=== PATIENT | female | born 1995 | race Caucasian/White ===

== ENCOUNTER 2019-03-02 04:35 | Emergency (ER) | payer OTHER ==
--- NOTE | 2019-03-02 04:38 | ED Physician Documentation ---
PD HPI HEENT - Stated complaint Stated Complaint: THROAT SWELLING/ITCHY - History obtained from History obtained from: Patient - History of Present Illness Timing - onset: How many hours ago (07/26), Today Timing - duration: Hours (07/26) Timing - details: Abrupt onset (She had been having some low back pain after some bending lifting. For this she took some tramadol which was a prior pres cription for her. She took it at about 2:30 AM and at 3 AM she started having a feeling of general itching and a feeling of some tightness in the back of her throat. She had not been allergic to it previously. There is no other new medicines or foods.), Still present Location: Throat, Mouth Worsens: Swalllowing Associated symptoms: Facial swelling, Other (general itching). No: Fever, Congestion Similar symptoms before: Has not had sx before Review of Systems Constitutional: denies: Fever, Myalgias Nose: denies: Rhinorrhea / runny nose, Congestion Throat: denies: Sore throat Cardiac: denies: Chest pain / pressure Respiratory: denies: Dyspnea, Cough GI: denies: Abdominal Pain, Nausea, Vomiting, Diarrhea Skin: reports: Rash (itching and some red blotches) PD PAST MEDICAL HISTORY - Past Medical History Cardiovascular: None Respiratory: None Neuro: None Endocrine/Autoimmune: None - Present Medications Home Medications: Ambulatory Orders Medication Instructions Recorded Confirmed Cetirizine [ZyrTEC] 10 mg PO DAILY #15 tablet 03/02/19 Hydrocodone/Acetaminophen [[place] 1 each PO Q6H PRN #15 tablet 03/02/19 5-325 Tablet] Methocarbamol [Robaxin] 500 mg PO Q6H PRN #25 tablet 03/02/19 Naproxen 500 mg PO BID #20 tablet 03/02/19 dexAMETHasone [Decadron] 4 mg PO DAILY #5 tablet 03/02/19 - Allergies Allergies/Adverse Reactions: Allergies Allergy/AdvReac Type Severity Reaction Status Date / Time Penicillins Allergy Rash Verified 03/02/19 04:43 - Living Situation Living Situation: reports: With spouse/s.o. Living Arrangement: reports: At home - Family History Family history: reports: Non contributory PD ED PE NORMAL - Vitals Vital signs reviewed: Yes - General General: Alert and oriented X 3, No acute distress, Well developed/nourished - HEENT HEENT: Atraumatic, Pharynx benign (with just minimal edema of the uvula. Else normal. ) - Neck Neck: Supple, no meningeal sign, No adenopathy - Cardiac Cardiac: RRR, No murmur - Respiratory Respiratory: Clear bilaterally - Back Back: Other - Derm Derm: Normal color, Warm and dry, Other (She is scratching diffusely. There only a few scattered flattopped raised variable sized red spots consistent with hives.) - Neuro Neuro: Alert and oriented X 3, No motor deficit, No sensory deficit Results - Vitals Vitals: Vital Signs - 24 hr 03/02/19 04:35 Temperature 36.4 C L Heart Rate 84 Respiratory 16 Rate Blood Pressure 130/78 O2 Saturation 98 Oxygen O2 Source Room air PD MEDICAL DECISION MAKING - ED course Complexity details: considered differential (Given the proximity of time from the tramadol to the symptoms and no other obvious instigator, I would presume she is now allergic to the tramadol. She is using it for low back pain so we can substitute in other treatments for the back. Otherwise shared treatment between the 2 would be some steroids for several days as well.), d/w patient Departure - Departure Disposition: 01 Home, Self Care Clinical Impression: Allergic reaction to drug Qualifiers: Encounter type: initial encounter Qualified Code(s): T78.40XA - Allergy, unspecified, initial encounter Low back pain Qualifiers: Chronicity: acute Back pain laterality: left Sciatica presence: with sciatica Sciatica laterality: sciatica of left side Qualified Code(s): M54.42 - Lumbago with sciatica, left side Condition: Stable Record reviewed to determine appropriate education?: Yes Instructions: ED Drug React Allergic Prescriptions: Cetirizine [ZyrTEC] 10 mg PO DAILY #15 tablet dexAMETHasone [Decadron] 4 mg PO DAILY #5 tablet Hydrocodone/Acetaminophen [[place] 5-325 Tablet] 1 each PO Q6H PRN #15 tablet PRN Reason: Pain Methocarbamol [Robaxin] 500 mg PO Q6H PRN #25 tablet PRN Reason: Spasms Naproxen 500 mg PO BID #20 tablet Comments: Use the Decadron steroid for the next several days. This will help treat the allergic reaction. It actually can be helpful for your low back pain as well. Add cetirizine if the itch seems to continue over the next couple of days. Use Benadryl every 6 hours as needed for acute itchiness. For your low back, use gentle heating and stretching. Massage or chiropractic are good. Use naproxen anti-inflammatory twice daily and add Robaxin muscle relaxant if needed for stiffness and spasm. Add hydrocodone if needed for back pain Discharge Date/Time: 03/02/19 05:26
[2019-03-02 04:43] VITALS: BP 130/78
[2019-03-02] MEDS ORDERED: CETIRIZINE 10 MG TABLET PO STA (04:48)
[2019-03-02] MEDS ORDERED: CHERRY SYRUP 10 ML UDC PO ONE (04:48)
[2019-03-02] MEDS ORDERED: NAPROXEN 250 MG TABLET PO STA (04:48)
[2019-03-02] MEDS ORDERED: diphenhydrAMINE INJ 50 MG/ML VIAL IM STA (04:48)
[2019-03-02] MEDS ORDERED: DEXAMETHASONE 10 MG/ML VIAL PO STA (04:48)
== END 2019-03-02 05:26 | disposition home or self-care (01) ==
LOC: ED 04:35
DX: L50.9 Urticaria, unspecified (principal); R22.0 Localized swelling, mass and lump, head; T40.4X5A Adverse effect of other synthetic narcotics, initial encounter; M54.42 Lumbago with sciatica, left side
CPT/HCPCS: 96372; 99283; 99284; A9270; J1200

== ENCOUNTER 2019-08-13 08:53 | Outpatient (CLI) | payer OTHER ==
[~2019-08-13 08:53] MED LIST: ALBUTEROL NEB 2.5 MG/3 ML INH ONE
== END 2019-08-13 08:54 | disposition home or self-care (01) ==
LOC: RT 08:53
PROVIDERS: ATTEND Family Medicine
DX: J35.1 Hypertrophy of tonsils (principal)
CPT/HCPCS: 94010

== ENCOUNTER 2019-09-08 14:58 | Emergency (ER) | payer OTHER ==
[2019-09-08] MEDS ORDERED: ONDANSETRON 4 MG/2 ML VIAL IVP STA (15:21)
[2019-09-08] MEDS ORDERED: SODIUM CHLORIDE 0.9% 1,000 ML IV ONE (15:21)
[2019-09-08] MEDS ORDERED: HYDROmorphone 1 MG/ML CARPUJECT IVP STA ×2 (15:21→16:02)
--- NOTE | 2019-09-08 15:24 | ED Physician Documentation ---
PD HPI ABD PAIN - Stated complaint Stated Complaint: LOWER ABD PX, FEVER - Chief complaint Chief Complaint: Abd Pain - History obtained from History obtained from: Patient (Previously healthy 23-year-old woman went to [place], while she was there she had a vomiting illness and then never felt quite right. 2 days ago her menses started, it was very light in about a week late and was associated with increasing pelvic pain, fever to 101 last night and continued nausea. Pelvic pain is now severe. She denies any urinary symptoms other than her pelvic pain worsens when she urinates. But there is no dysuria or burning.) Review of Systems Constitutional: reports: Fever, Chills Ears: denies: Ear pain Nose: denies: Rhinorrhea / runny nose Throat: denies: Sore throat Respiratory: denies: Dyspnea, Cough GI: reports: Abdominal Pain, Nausea. 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 - Past Surgical History Past Surgical History: No - Present Medications Home Medications: Ambulatory Orders Medication Instructions Recorded Confirmed Cetirizine [ZyrTEC] 10 mg PO DAILY #15 tablet 03/02/19 Hydrocodone/Acetaminophen [[place] 1 each PO Q6H PRN #15 tablet 03/02/19 5-325 Tablet] Naproxen 500 mg PO BID #20 tablet 03/02/19 dexAMETHasone [Decadron] 4 mg PO DAILY #5 tablet 03/02/19 methocarbamoL [Robaxin] 500 mg PO Q6H PRN #25 tablet 03/02/19 - Allergies Allergies/Adverse Reactions: Allergies Allergy/AdvReac Type Severity Reaction Status Date / Time Penicillins Allergy Rash Verified 09/08/19 15:07 tramadol Allergy Itching Verified 09/08/19 15:07 - Social History Does the pt smoke?: Yes Smoking Status: Current every day smoker Does the pt drink ETOH?: Yes Does the pt have substance abuse?: Yes - Immunizations Immunizations are current?: Yes - POLST Patient has POLST: No PD ED PE NORMAL - Vitals Vital signs reviewed: Yes - General General: Alert and oriented X 3, No acute distress - HEENT HEENT: PERRL, EOMI - Neck Neck: Supple, no meningeal sign, No bony TTP - Cardiac Cardiac: RRR, No murmur - Respiratory Respiratory: No respiratory distress, Clear bilaterally - Abdomen Abdomen: Normal bowel sounds, Soft, Other (Significant lower abdominal tenderness that does not seem to lateralize. No surgical signs.) - Female Female : Assistant Infant Toddler Teacher present (Pelvic exam done with Magaly Pedersen RN present and chaperoning), Other (Significant cervical motion and right adnexal tenderness with some dark green drainage in the vault, cultures were taken.) - Back Back: No CVA TTP, No spinal TTP - Derm Derm: Normal color, Warm and dry - Extremities Extremities: No tenderness to palpate, No edema, No calf tenderness / cord - Neuro Neuro: Alert and oriented X 3, Normal speech Results - Vitals Vitals: Vital Signs - 24 hr 09/08/19 09/08/19 09/08/19 15:02 16:59 18:27 Temperature 37.1 C 37.2 C Heart Rate 106 H 101 H 84 Respiratory 14 18 16 Rate Blood Pressure 121/78 118/65 116/66 O2 Saturation 100 96 97 09/08/19 20:05 Temperature Heart Rate 78 Respiratory 18 Rate Blood Pressure 111/68 O2 Saturation 97 Oxygen O2 Source Room air - Labs Labs: Laboratory Tests 09/08/19 09/08/19 09/08/19 15:30 15:34 15:34 WBC 21.1 H RBC 4.54 Hgb 13.5 Hct 40.7 MCV 89.6 MCH 29.7 MCHC 33.2 RDW 12.3 Plt Count 223 MPV 10.6 Neut # (Auto) Not Reportable Lymph # (Auto) Not Reportable [place] # (Auto) Not Reportable Eos # (Auto) Not Reportable Baso # (Auto) Not Reportable Absolute Nucleated RBC Not Reportable Total Counted 100 Band Neuts % (Manual) 0 Abnorm Lymph % (Manual) 0 Nucleated RBC % Not Reportable Neutrophils # (Manual) 17.5 H Lymphocytes # (Manual) 2.1 Monocytes # (Manual) 1.5 H Eosinophils # (Manual) 0.0 Basophils # (Manual) 0.0 Differential Comment MANUAL DIFFERENTIAL Manual Slide Review Indicated WBC Morphology NORMAL APPEARANCE Platelet Estimate NORMAL (130-450,000) Platelet Morphology NORMAL APPEARANCE RBC Morph Micro Appear NORMAL APPEARANCE Sodium 134 L Potassium 3.6 Chloride 100 L Carbon Dioxide 24 Anion Gap 10.0 BUN 9 Creatinine 0.8 Estimated GFR (MDRD) 88 L Glucose 120 H Lactic Acid Calcium 9.8 Total Bilirubin 0.9 AST 24 ALT 40 Alkaline Phosphatase 123 H Total Protein 8.2 Albumin 4.1 Globulin 4.1 Albumin/Globulin Ratio 1.0 Lipase 25 Urine Color YELLOW Urine Clarity CLEAR Urine pH 8.0 H Ur Specific [place] 1.015 Urine Protein NEGATIVE Urine Glucose (UA) NEGATIVE Urine Ketones NEGATIVE Urine Occult Blood TRACE-INTA Urine Nitrite NEGATIVE Urine Bilirubin NEGATIVE Urine Urobilinogen 0.2 (NORMAL) Ur Leukocyte Esterase NEGATIVE Ur Microscopic Review NOT INDICATED Urine Culture Comments NOT INDICATED Urine HCG, Qual NEGATIVE 09/08/19 17:15 WBC RBC Hgb Hct MCV MCH MCHC RDW Plt Count MPV Neut # (Auto) Lymph # (Auto) [place] # (Auto) Eos # (Auto) Baso # (Auto) Absolute Nucleated RBC Total Counted Band Neuts % (Manual) Abnorm Lymph % (Manual) Nucleated RBC % Neutrophils # (Manual) Lymphocytes # (Manual) Monocytes # (Manual) Eosinophils # (Manual) Basophils # (Manual) Differential Comment Manual Slide Review WBC Morphology Platelet Estimate Platelet Morphology RBC Morph Micro Appear Sodium Potassium Chloride Carbon Dioxide Anion Gap BUN Creatinine Estimated GFR (MDRD) Glucose Lactic Acid 1.4 Calcium Total Bilirubin AST ALT Alkaline Phosphatase Total Protein Albumin Globulin Albumin/Globulin Ratio Lipase Urine Color Urine Clarity Urine pH Ur Specific [place] Urine Protein Urine Glucose (UA) Urine Ketones Urine Occult Blood Urine Nitrite Urine Bilirubin Urine Urobilinogen Ur Leukocyte Esterase Ur Microscopic Review Urine Culture Comments Urine HCG, Qual - Rads (name of study) Ct A/P Radiology: EMP read contemporaneously (Right lower quadrant lymph nodes, trace pelvic free fluid, no other abnormality) PD MEDICAL DECISION MAKING - ED course ED course: 23-year-old woman presents with some nonspecific symptoms subsequently now has fever, pelvic pain, nausea. Nothing to suggest any other infections i.e. her urine is normal, no respiratory symptoms. She is a white count of 21,000 and a pelvic exam showing significant cervical motion and right adnexal tenderness. CT was basically negative. Case discussed by phone with Dr. Christy, on-call gynecology who agrees with IV cefotetan and doxycycline and does request a pelvic ultrasound. Care to Dr Jackson at 5pm, see his notes for further details on disposition. Departure - Departure Disposition: 01 Home, Self Care Clinical Impression: PID (acute pelvic inflammatory disease) Condition: Good Record reviewed to determine appropriate education?: Yes Instructions: ED PID Follow-Up: Chico Morrison MD [Provider Admit Priv/Credential] - Within 1 week Chico Morrison MD [Provider Admit Priv/Credential] - Comments: Use the doxycycline as prescribed by Dr. Jaelyn rosa. She also prescribed you oxycodone. Return if you worsen, especially for fevers or uncontrolled pain. Do not drink alcohol or drive while on narcotic pain medicine. Note that many narcotic pain relievers also contain tylenol/acetaminophen. Please ensure that your total dose of acetaminophen from all sources does not exceed 3 grams (3000mg) per day. You may constipated on this medication, take a stool softener such as "Colace" twice a day while you are on it. Also recommend a nwwv-iat-wvereud laxative such as senna or MiraLAX any day that you do not have a bowel movement. If you received narcotic pain medication in the emergency department, do not drive or operate machinery for the next 24 hours. Discharge Date/Time: 09/08/19 20:13
[2019-09-08 15:43] LABS: BILIRUBIN,URINE NEGATIVE (NEGATIVE); CLARITY,URINE CLEAR (CLEAR); GLUCOSE, URINE (UA) NEGATIVE (NEGATIVE); KETONES,URINE (UA) NEGATIVE (NEGATIVE); LEUKOCYTE ESTERASE, URINE NEGATIVE (NEGATIVE); NITRITE,URINE NEGATIVE (NEGATIVE); OCCULT BLOOD,URINE TRACE-INTA (NEGATIVE); PROTEIN,URINE NEGATIVE (NEGATIVE); UROBILINOGEN,URINE 0.2 (NORMAL) E.U./dL (NORMAL)
[2019-09-08 15:44] LABS: HCG UR QUAL NEGATIVE
[2019-09-08 15:45] LABS: BASOPHILS % (AUTO) 0.4 %; EOSINOPHILS % (AUTO) 0.2 %; HGB - HEMOGLOBIN 13.5 g/dL (12.0-16.0); MEAN CORPUSCULAR HEMOGLOBIN 29.7 pg (27.0-31.0); MEAN CORPUSCULAR HGB CONC 33.2 g/dL (32.0-36.0); MEAN CORPUSCULAR VOLUME 89.6 fL (81.0-99.0); MEAN PLATELET VOLUME 10.6 fL (7.9-10.8); MONOCYTES % (AUTO) 5.1 %; NEUTROPHILS % (AUTO) 82.6 %; PLT - PLATELET COUNT 223 10^3/uL (130-450); RED BLOOD COUNT 4.54 10^6/uL (4.20-5.40); RED CELL DISTRIBUTION WIDTH 12.3 % (12.0-15.0); WHITE BLOOD COUNT 21.1 x10^3/uL (4.8-10.8)
[2019-09-08 15:48] LABS: ABNORMAL LYMPHS % (MANUAL) 0 %; BAND NEUTROPHILS % (MANUAL) 0 %
[2019-09-08 15:56] LABS: ALBUMIN 4.1 g/dL (3.2-5.5); BILIRUBIN,TOTAL 0.9 mg/dL (0.2-1.0); CALCIUM 9.8 mg/dL (8.5-10.3); CREATININE 0.8 mg/dL (0.4-1.0); TOTAL PROTEIN 8.2 g/dL (6.7-8.2)
[2019-09-08] MEDS ORDERED: IOVERSOL 320 100 ML VIAL IVP ONE ×2 (15:56→16:28)
[2019-09-08 16:01] LABS: DIFFERENTIAL COMMENT MANUAL DIFFERENTIAL; LYMPHOCYTES # (MANUAL) 2.1 10^3/uL (1.5-3.5); LYMPHOCYTES % (MANUAL) 10 %; MONOCYTES # (MANUAL) 1.5 10^3/uL (0.0-1.0); PLATELET ESTIMATE, MANUAL NORMAL (130-450,000) (NORMAL); PLATELET MORPHOLOGY NORMAL APPEARANCE (NORMAL); RBC MORPHOLOGY (MULTIPLE) NORMAL APPEARANCE (NORMAL)
[2019-09-08] MEDS ORDERED: KETOROLAC 30 MG/ML VIAL IVP STA (16:44)
--- NOTE | 2019-09-08 16:49 | CT Report ---
Reason: IV only, low abd pain Procedure Date: 09/08/2019 Accession Number: [id number] / [id number] Procedure: CT - Abdomen/Pelvis W CPT Code: Final Report FULL RESULT: EXAM: CT ABDOMEN AND PELVIS EXAM DATE: 09/08/2019 04:25 PM. CLINICAL HISTORY: Lower abdominal pain COMPARISONS: None. TECHNIQUE: Routine helical CT imaging was performed through the abdomen and pelvis. IV contrast: 90 mL Optiray 320. Enteric contrast: No. Reconstructions: Coronal and sagittal. In accordance with CT protocol optimization, one or more of the following dose reduction techniques were utilized for this exam: automated exposure control, adjustment of mA and/or KV based on patient size, or use of iterative reconstructive technique. FINDINGS: Lung Bases: Mild dependent atelectasis. Liver: Enlargement of the right hepatic lobe measuring approximately 21.5 cm in length. Diffuse low attenuation of the hepatic parenchyma with respect to the spleen, indicating steatosis. No focal hepatic lesion. Gallbladder/Bile Ducts: Unremarkable. No visualized stones or biliary ductal dilatation. Spleen: Normal. Pancreas: Normal. Adrenal Glands: Normal. Kidneys and Ureters: Normal. No stones, hydronephrosis, or hydroureter. Peritoneal Cavity/Bowel: Multiple clustered prominent and mildly enlarged right lower quadrant mesenteric nodes, the largest 16 x 14 mm (3/50). No focal bowel wall thickening or adjacent mesenteric fat stranding to suggest acute inflammatory process. No evidence of bowel obstruction. The appendix is normal. Trace intrapelvic free fluid, within physiologic limits. No pneumoperitoneum. Pelvic Organs: The bladder, uterus, and ovaries are within normal limits. Vasculature: Normal. Bones: Minimal left convex curvature centered at L2-L3, possibly positional. No acute bony abnormality. Other: None. IMPRESSION: 1. Multiple clustered prominent or mildly enlarged right lower quadrant mesenteric nodes, nonspecific but could represent mesenteric adenitis. 2. Steatotic, mildly enlarged liver. RADIA
[2019-09-08] MEDS ORDERED: CEFOTETAN DISODIUM 2 GM in SODIUM CHLORIDE 0.9% MINIBAG 100 ML IV STA (16:59)
[2019-09-08] MEDS ORDERED: DOXYCYCLINE INJ 100 MG in SODIUM CHLORIDE 0.9% MINIBAG 100 ML IV STA (16:59)
--- NOTE | 2019-09-08 18:53 | Ultrasound Report ---
Reason: pelvic pain, R Procedure Date: 09/08/2019 Accession Number: [id number] / [id number] Procedure: US - Pelvic w/Transvag+Doppler Comp CPT Code: Final Report FULL RESULT: EXAM: PELVIC ULTRASOUND WITH DOPPLERS CLINICAL HISTORY: Pelvic pain, R. COMPARISON: CT ABDOMEN/PELVIS W/ 09/08/2019 4:19 PM TECHNIQUE: Realtime transabdominal imaging performed to identify the uterus and adnexa and as an overview of other pelvic structures, followed by transvaginal imaging for better assessment of the endometrium and adnexa, with static image documentation. Color flow imaging and Doppler spectral analysis was performed to evaluate blood flow to the ovaries given pelvic pain and clinical concern for ovarian torsion. FINDINGS: Uterus: 8.1 x 2.7 x 4.3 cm, volume 48 cc. Anteverted position. Normal overall size and echotexture. Masses: None. Endometrium: 5 mm. No thickening. However, there is evidence of mild movement of the echogenicity within the endometrial cavity suggesting complex fluid such as blood. Cervix: Nabothian cyst Ovaries: Both ovaries demonstrate numerous peripheral small simple follicles, numbering greater than 20. Right Ovary: 4.2 x 2.6 x 2.8 cm, volume 16 cc. Normal echotexture. Arterial and venous blood flow are present. PSV 8.7 cm/sec. RI 0.61. Adnexa are unremarkable. Left Ovary: 3.8 x 2.0 x 2.4 cm, volume 9.2 cc. 3 x 5 x 5 mm rounded echogenic focus, without louie distal shadowing. This is nonspecific but of questionable clinical significance. This could represent a tiny hemorrhagic cyst. Early calcification is a consideration. Arterial and venous blood flow are present. PSV 24.5 cm/sec. RI 0.6. Adnexa are unremarkable. Free Fluid: Mild anechoic free fluid within the posterior cul-de-sac. Other: None. IMPRESSION: 1. Mild motion within non-thickened endometrium suggest complex fluid, possibly blood. Otherwise, unremarkable uterus. 2. Arterial and venous blood flow are present to the ovaries bilaterally. 3. Both ovaries demonstrate numerous peripheral small follicles suggestive of polycystic ovarian disease. Clinical correlation recommended. 4. Small round hyperechoic focus within the left ovary, of questionable clinical significance. 5. Mild anechoic free fluid within the posterior cul-de-sac. RADIA
[2019-09-08] MEDS ORDERED: oxyCODONE/ACET 5/325 Prepack 4 PO STA (19:48)
--- NOTE | 2019-09-08 19:50 | ED Physician Documentation ---
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 - Past Surgical History Past Surgical History: No - Present Medications Home Medications: Ambulatory Orders Medication Instructions Recorded Confirmed Cetirizine [ZyrTEC] 10 mg PO DAILY #15 tablet 03/02/19 Hydrocodone/Acetaminophen [[place] 1 each PO Q6H PRN #15 tablet 03/02/19 5-325 Tablet] Naproxen 500 mg PO BID #20 tablet 03/02/19 dexAMETHasone [Decadron] 4 mg PO DAILY #5 tablet 03/02/19 methocarbamoL [Robaxin] 500 mg PO Q6H PRN #25 tablet 03/02/19 - Allergies Allergies/Adverse Reactions: Allergies Allergy/AdvReac Type Severity Reaction Status Date / Time Penicillins Allergy Rash Verified 09/08/19 15:07 tramadol Allergy Itching Verified 09/08/19 15:07 - Social History Does the pt smoke?: Yes Smoking Status: Current every day smoker Does the pt drink ETOH?: Yes Does the pt have substance abuse?: Yes Substance Use and Type: Marijuana - Immunizations Immunizations are current?: Yes - POLST Patient has POLST: No Results - Vitals Vitals: Vital Signs - 24 hr 09/08/19 09/08/19 09/08/19 15:02 16:59 18:27 Temperature 37.1 C 37.2 C Heart Rate 106 H 101 H 84 Respiratory 14 18 16 Rate Blood Pressure 121/78 118/65 116/66 O2 Saturation 100 96 97 09/08/19 20:05 Temperature Heart Rate 78 Respiratory 18 Rate Blood Pressure 111/68 O2 Saturation 97 Oxygen O2 Source Room air - Labs Labs: Laboratory Tests 09/08/19 09/08/19 09/08/19 15:30 15:34 15:34 WBC 21.1 H RBC 4.54 Hgb 13.5 Hct 40.7 MCV 89.6 MCH 29.7 MCHC 33.2 RDW 12.3 Plt Count 223 MPV 10.6 Neut # (Auto) Not Reportable Lymph # (Auto) Not Reportable [place] # (Auto) Not Reportable Eos # (Auto) Not Reportable Baso # (Auto) Not Reportable Absolute Nucleated RBC Not Reportable Total Counted 100 Band Neuts % (Manual) 0 Abnorm Lymph % (Manual) 0 Nucleated RBC % Not Reportable Neutrophils # (Manual) 17.5 H Lymphocytes # (Manual) 2.1 Monocytes # (Manual) 1.5 H Eosinophils # (Manual) 0.0 Basophils # (Manual) 0.0 Differential Comment MANUAL DIFFERENTIAL Manual Slide Review Indicated WBC Morphology NORMAL APPEARANCE Platelet Estimate NORMAL (130-450,000) Platelet Morphology NORMAL APPEARANCE RBC Morph Micro Appear NORMAL APPEARANCE Sodium 134 L Potassium 3.6 Chloride 100 L Carbon Dioxide 24 Anion Gap 10.0 BUN 9 Creatinine 0.8 Estimated GFR (MDRD) 88 L Glucose 120 H Lactic Acid Calcium 9.8 Total Bilirubin 0.9 AST 24 ALT 40 Alkaline Phosphatase 123 H Total Protein 8.2 Albumin 4.1 Globulin 4.1 Albumin/Globulin Ratio 1.0 Lipase 25 Urine Color YELLOW Urine Clarity CLEAR Urine pH 8.0 H Ur Specific [place] 1.015 Urine Protein NEGATIVE Urine Glucose (UA) NEGATIVE Urine Ketones NEGATIVE Urine Occult Blood TRACE-INTA Urine Nitrite NEGATIVE Urine Bilirubin NEGATIVE Urine Urobilinogen 0.2 (NORMAL) Ur Leukocyte Esterase NEGATIVE Ur Microscopic Review NOT INDICATED Urine Culture Comments NOT INDICATED Urine HCG, Qual NEGATIVE 09/08/19 17:15 WBC RBC Hgb Hct MCV MCH MCHC RDW Plt Count MPV Neut # (Auto) Lymph # (Auto) [place] # (Auto) Eos # (Auto) Baso # (Auto) Absolute Nucleated RBC Total Counted Band Neuts % (Manual) Abnorm Lymph % (Manual) Nucleated RBC % Neutrophils # (Manual) Lymphocytes # (Manual) Monocytes # (Manual) Eosinophils # (Manual) Basophils # (Manual) Differential Comment Manual Slide Review WBC Morphology Platelet Estimate Platelet Morphology RBC Morph Micro Appear Sodium Potassium Chloride Carbon Dioxide Anion Gap BUN Creatinine Estimated GFR (MDRD) Glucose Lactic Acid 1.4 Calcium Total Bilirubin AST ALT Alkaline Phosphatase Total Protein Albumin Globulin Albumin/Globulin Ratio Lipase Urine Color Urine Clarity Urine pH Ur Specific [place] Urine Protein Urine Glucose (UA) Urine Ketones Urine Occult Blood Urine Nitrite Urine Bilirubin Urine Urobilinogen Ur Leukocyte Esterase Ur Microscopic Review Urine Culture Comments Urine HCG, Qual PD MEDICAL DECISION MAKING - ED course Complexity details: reviewed results, re-evaluated patient, considered differential, d/w patient, d/w family, d/w absence management consultant ED course: 23-year-old female with a presumed diagnosis of pelvic inflammatory disease. Her pain is well controlled. Gynecology, Dr. Christy came and saw the patient. Admission was offered and recommended to the patient. She does not want to be admitted to the hospital and chooses to go home. Strict return precautions given at bedside to the patient and her . Patient is well- appearing, nontoxic. No evidence of sepsis. Patient counseled regarding signs and symptoms for which I believe and urgent re-evaluation would be necessary. Patient with good understanding of and agreement to plan and is comfortable going home at this time This document was made in part using voice recognition software. While efforts are made to proofread this document, sound alike and grammatical errors may occur. Departure - Departure Disposition: 01 Home, Self Care Clinical Impression: PID (acute pelvic inflammatory disease) Condition: Good Instructions: ED PID Follow-Up: Chico Morrison MD [Provider Admit Priv/Credential] - Chico Morrison MD [Provider Admit Priv/Credential] - Within 1 week Comments: Use the doxycycline as prescribed by Dr. Jaelyn rosa. She also prescribed you oxycodone. Return if you worsen, especially for fevers or uncontrolled pain. Do not drink alcohol or drive while on narcotic pain medicine. Note that many narcotic pain relievers also contain tylenol/acetaminophen. Please ensure that your total dose of acetaminophen from all sources does not exceed 3 grams (3000mg) per day. You may constipated on this medication, take a stool softener such as "Colace" twice a day while you are on it. Also recommend a rzwo-fax-aqritre laxative such as senna or MiraLAX any day that you do not have a bowel movement. If you received narcotic pain medication in the emergency department, do not drive or operate machinery for the next 24 hours. Discharge Date/Time: 09/08/19 20:13
[2019-09-08] MEDS ORDERED: oxyCODONE 5 MG TABLET PO STA (19:59)
[2019-09-08 20:06] VITALS: BP 111/68
== END 2019-09-08 20:13 | disposition home or self-care (01) ==
LOC: ED 14:58
DX: N73.0 Acute parametritis and pelvic cellulitis (principal); F17.200 Nicotine dependence, unspecified, uncomplicated
CPT/HCPCS: 36415; 74177; 76830; 76856; 80053; 81003; 81025; 83605; 83690; 85025; 87040; 93975; 96361; 96365; 96367; 96375; 99284; 99285; A9270; J1170; Q9967; 81001; 87086; 87491; 87591; 87661